=== PATIENT | female | born 1980 | race Caucasian/White ===

== ENCOUNTER 2017-12-05 06:35 | Emergency (ER) | payer SELFPAY ==
[2017-12-05] MEDS ORDERED: TETANUS & DIPHTHERIA TOX,ADULT 0.5 ML VIAL ONE (06:41)
[2017-12-05] MEDS ORDERED: NA CHLORIDE 0.9% 1,000 ML ONE ×2 (06:49→07:36)
[2017-12-05 07:02] LABS: Absolute Lymphocytes (CBC) 1.3 K/uL (0.7-4.9); Absolute Neutrophil 10.2 K/uL (1.8-8.0); Basophils % 0.4 % (0-1.3); Eosinophils % 0.1 % (0-4.4); Hematocrit 42.7 % (36.0-45.0); Lymphocytes % 10.5 % (15.3-44.8); MCH 29.7 pg (27.0-35.0); MCV 90.1 fL (80-100); MPV 9.9 fL (7.6-11.3); Monocytes % 7.6 % (3.3-12.3); RBC Red Blood Cell Count 4.74 M/uL (3.86-4.86)
[2017-12-05 07:10] LABS: Protime INR 0.92
[2017-12-05 07:13] LABS: Bicarbonate 28 mEq/L (21-31); Glucose Level 93 mg/dL (65-120); Potassium 4.1 mEq/L (3.6-5.0); Sodium Level 138 mEq/L (135-145)
[2017-12-05 07:14] LABS: Barbiturates NEGATIVE; Benzodiazepines POSITIVE; Cocaine NEGATIVE; METHAMPHETAM NEGATIVE; Opiates NEGATIVE; Phencyclidine NEGATIVE; THC Cannibis NEGATIVE
[2017-12-05 07:22] LABS: ALT/SGPT 18 IU/L (10-60); AST/SGOT 46 IU/L (10-42); Albumin 4.3 g/dL (3.2-5.5); Alkaline Phosphatase 62 IU/L (42-121); BUN Blood Urea Nitrogen 14 mg/dL (6-20); Bilirubin Direct 0.1 mg/dL (0-0.2); Bilirubin Total 0.3 mg/dL (0.3-1.2); CKMB Creatine Kinase MB 5.3 ng/ml (0.3-4.0); Glomerular Filtration Rate > 90 mL/min (=/>90)
[2017-12-05 07:23] LABS: Salicylates Level < 4.0 mg/dl (<30)
[2017-12-05 07:25] LABS: Alcohol Serum/Plasma < 10 mg/dl
[2017-12-05 07:34] LABS: Creatine Phosphokinase 3586 IU/L (22-269)
--- NOTE | 2017-12-05 08:15 | RAD REPORT ---
EXAM DESCRIPTION: CT - Head Brain Wo Cont - 12/05/2017 8:02 am CLINICAL HISTORY: Transient alteration of awareness. COMPARISON: None. TECHNIQUE: Axial 5 mm thick images of the head were obtained without IV contrast. All CT scans are performed using dose optimization technique as appropriate and may include automated exposure control or mA/KV adjustment according to patient size. FINDINGS: No intracranial hemorrhage, mass, edema or shift of mid-line structures. No acute infarcti on changes seen. No abnormal extra-axial fluid collections. Ventricles are normal. Mastoid air cells and visualized portions of the paranasal sinuses are clear. No acute bony findings. IMPRESSION: Negative non-contrast CT head examination.
--- NOTE | 2017-12-05 08:29 | RAD REPORT ---
EXAM DESCRIPTION: RAD - Foot Right 3 View - 12/05/2017 7:30 am CLINICAL HISTORY: Altered mental status, soft tissue injury right first toe COMPARISON: None. FINDINGS: A fracture is present along the medial base of the first distal phalanx. No measurable dis traction or angulation component. No lytic or destructive process. Fracture does involve the articula r surface of the distal phalanx. IP joint is otherwise unremarkable. No injury to the first proximal phalanx or first MTP joint. Elsewhere no acute bone finding. No air or foreign body in the soft tissues. IMPRESSION: Fracture is present at the base of the first distal phalanx. No significant distraction or angulation component.
--- NOTE | 2017-12-05 08:33 | ER ---
Nurse's Notes [facility] Name: Kayla Palacio Age: 37 yrs Sex: Female : 1980 Arrival Date: 12/05/2017 Time: 06:36 Bed 4 Private MD: Diagnosis: Altered mental status, unspecified;Rhabdomyolysis;Hypothermia;Nondisplaced fracture of distal phalanx of right great toe Presentation: 12/05 06:37 Presenting complaint: EMS states: they were toned out for report of pt with AMS bb according to PD pt had been wondering around outside approx 4 hours. Transition of care: patient was not received from another setting of care. Onset of symptoms is unknown. Care prior to arrival: None. 06:37 Method Of Arrival: EMS: [facility] bb 06:37 Acuity: RAHUL 2 bb EXTENSION SUPERVISOR: 06:38 unknown bb Historical: - Allergies: 06:38 Unable to obtain; bb - Home Meds: 06:38 Unable to obtain [Active]; bb - PMHx: 06:38 Unable to obtain; bb - PSHx: 06:38 Unable to obtain; bb - Immunization history:: Adult Immunizations unknown. - Social history:: Smoking status: unknown. Screenin:04 Fall Risk Fall in past 12 months (25 points). Secondary diagnosis (15 points) Altered ae1 mental status. . IV access (20 points). Ambulatory Aid- None/Bed Rest/Nurse Assist (0 pts). Gait- Normal/Bed Rest/Wheelchair (0 pts) Mental Status- Overestimates/Forgets Limitations (15 pts.). 09:43 Abuse screen: Patient is confused and states she remembers a woman telling her "we are ae1 going on a road trip" Patient states she does not remember the woman's name. Tuberculosis screening: Patient is confused and cannot answer some questions. . Patient has been NPO before screening. The patient is alert, able to follow commands. The patient exhibits slurred or garbled speech. The patient is exhibiting difficulty speaking. The patient does not exhibit difficulty understanding words. The patient is able to swallow own secretions with no drooling or need for suction. Patient tolerated one teaspoon of water. No drooling, immediate coughing, gurgling, or clearing of the throat was noted. Patient tolerated about 30 mls The patient passed the bedside swallow screening. Oral medications may be given as ordered. Contact Physician for further diet orders. 10:49 Nutritional screening: No deficits noted. ae1 Assessment: 06:50 Reassessment: Warm IV fluids infusing. lp1 07:06 General: Appears unkempt, Behavior is flat. Pain: Unable to use pain scale. Patient is lp1 disoriented. Neuro: Level of Consciousness is awake, stuporous, Oriented to none Manager Web are equal bilaterally Moves all extremities. Full function Pupils are pinpoint, Unable to answer questions appropriately . Cardiovascular: Pulses are all present. Respiratory: Airway is patent Respiratory effort is even, unlabored, Respiratory pattern is regular. GI: Abdomen is non-distended. : No deficits noted. EENT: No deficits noted. Derm: Skin has skin tears on Multiple abrasions to abdomen, bilateral knees, bilateral arms; bilateral elbows, abrasion to right cheek of face. Musculoskeletal: Circulation, motion, and sensation intact. Bruising noted to right great toe, purple in color. 07:29 Reassessment: Patient appears in no apparent distress at this time. General: Appears ae1 unkempt, Behavior is cooperative, quiet, Patient is mumbling incoherently.. Neuro: Level of Consciousness is awake, confused, Oriented to person, Patient will look at nurse when called by name. . 08:00 Reassessment: Patient transported to CT via stretcher with cheese grader and Perla Ramirez, rubia1 RN. 09:01 Neuro: Level of Consciousness is awake, alert, patient appears more alert, tugging at ae1 blankets, mumbling in incoherently. . 09:17 General: Behavior is anxious, restless. Neuro: Level of Consciousness is awake, alert, ae1 confused, Oriented to person. 09:54 General: Appears Behavior is anxious, restless, Patient is tugging at IV tubing and ae1 vital sign monitoring wires. . 10:09 Reassessment: Removed grass, twigs and burrs from hair. Assisted patient in washing ae1 face with warm wet washcloths. 10:22 Reassessment: Called [facility] to give report via telephone, spoke to Dariana, haroldo Charge Nurse, Dariana states she has not accepted the patient and did not know she was receiving a patient. Dariana asked for background on patient to determine if patient is suitable for her unit, nurse gave report ot Dariana. Dariana states to call back when acceptance is done for patient. 10:48 Reassessment: Report given to COLTEN Patel via telephone. Reassessment: Report given to [facility]. Vital Signs: 06:38 BP 135 / 97; Pulse 68; Resp 18 S; Pulse Ox 100% on R/A; Weight 68.04 kg (R); Height 5 bb ft. 4 in. (162.56 cm) (R); 06:44 Temp 93.1(R); bb 06:44 lp1 07:31 BP 124 / 89; Pulse 74; Resp 17; Temp 93.4(R); Pulse Ox 100% on R/A; ae1 08:45 BP 134 / 97; Pulse 78; Resp 19; Temp 94.6(C); Pulse Ox 98% on R/A; ae1 09:04 BP 110 / 74; Pulse 71; Resp 18; Temp 95.3(C); Pulse Ox 100% on R/A; ae1 09:19 Pulse 82; Temp 95.6(C); Pulse Ox 98% on R/A; ae1 09:28 Temp 95.9(C); ae1 10:05 BP 102 / 65; Temp 96.7(C); ae1 10:35 BP 109 / 78; Pulse 88; Resp 19 S; Temp 97(C); Pulse Ox 98% on R/A; ae1 06:38 Body Mass Index 25.75 (68.04 kg, 162.56 cm) bb 06:38 unable to determine bb 06:44 Laxmi hugger applied at this time lp1 ED Course: 06:30 Inserted saline lock: 20 gauge in right antecubital area, using aseptic technique. lp1 Blood collected. By COLTEN Loo. 06:36 Patient arrived in ED. kb 06:37 Deisy Anand FNP-C [facility]. kb 06:37 Camden Montaño MD is Attending Physician. kb 06:38 Triage completed. bb 06:38 Arm band placed on Patient placed in an exam room, on a stretcher, on library monitor, bb on pulse oximetry. 06:40 Straight cath inserted, using sterile technique, 16 Fr. Specimen obtained. lp1 06:52 Radiology exam delayed due to nurse to call when patient's body temp has increased. jg1 07:01 Watson Ramirez, COLTEN is Primary Nurse. ae1 07:05 Patient has correct armband on for positive identification. Placed in gown. Bed in low lp1 position. Side rails up X2. Pulse ox on. NIBP on. 07:25 X-ray completed. Portable x-ray completed in exam room. Patient tolerated procedure kp1 poorly. 07:26 Foot Right 3 View XRAY In Process Unspecified. EDMS 07:57 CT completed. Patient moved to CT via stretcher. Patient moved back from CT. cw1 08:02 CT Head Brain wo Cont In Process Unspecified. EDMS 08:14 Patient moved back from CT. ae1 08:32 Beth Neumann MD is Hospitalizing Provider. kb 08:58 De cath inserted, using sterile technique, 16 Fr., by ca, balloon inflated, urine ae1 specimen collected. returned giles urine. Patient tolerated well. 10:49 No provider procedures requiring assistance completed. Patient transferred, IV remains ae1 in place. Administered Medications: 06:59 Drug: NS 0.9% 1000 ml Route: IV; Rate: 1000 ml; Site: right antecubital; lp1 09:42 Follow up: IV Status: Completed infusion ae1 07:00 Drug: Tetanus-Diphtheria Toxoid Adult 0.5 ml {Auto Striper: [employer]. Exp: lp1 03/25/2020. Lot #: [id number]. } Route: IM; Site: right deltoid; 10:50 Follow up: Response: No adverse reaction ae1 08:44 Drug: NS 0.9% 1000 ml Route: IV; Rate: 1000 ml; Site: right antecubital; ae1 10:50 Follow up: IV Status: Completed infusion ae1 Point of Care Testing: Blood Glucose: 06:44 Blood Glucose: 90 mg/dL; bb Ranges: Output: 09:18 Urine: 650ml (De); Total: 650ml. ae1 Outcome: 08:33 Decision to Hospitalize by Provider. kb 10:17 ER care complete, transfer ordered by . kb 10:49 Transferred by ground EMS to [facility]. ae1 10:49 Condition: stable 10:49 Instructed on the need for transfer. 10:50 Patient left the ED. ae1 Signatures: Dispatcher [employer] EDMS Deisy Anand, HAND ALTERATIONS TAILOR-C HAND ALTERATIONS TAILOR-Ckb Sandra Darby jg1 Rosa Potts, RN RN Kimberly Freedman cw1 Pascale Fontaine, RN RN lp1 Watson Ramirez RN RN ae1 Anna Deluca kp1 Corrections: (The following items were deleted from the chart) 07:38 07:31 BP 137 / 111; Pulse 74bpm; Resp 17bpm; Pulse Ox 100% RA; Temp 93.4F Rectal; ae1 ae1 08:58 08:45 Pulse 78bpm; Resp 19bpm; Pulse Ox 98% RA; Temp 94.6F Catheter; ae1 ae1 10:26 10:22 Reassessment: Called [facility] to give report via telephone, spoke to ae1 Dariana, Charge Nurse, Dariana states she has not accepted the patient and did not know she was receiving a patient. Dariana asked for background on patient to determine if patient is suitable for her unit. Dariana states to call back when acceptance is done for patient. ae1
--- NOTE | 2017-12-05 08:33 | EDPHYS ---
Physician Documentation [facility] Name: Kayla Plaacio Age: 37 yrs Sex: Female : 1980 Arrival Date: 12/05/2017 Time: 06:36 Bed 4 Private MD: ED Physician Camden Motnaño HPI: 12/05 06:40 This 28 yrs old Female presents to ER via EMS with complaints of AMS. kb 06:40 The patient presents with decreased mental status. Onset: The symptoms/episode kb began/occurred at an unknown time. Possible causes: unknown. Associated signs and symptoms: Pertinent positives: confusion. Current symptoms: In the emergency department the patient's symptoms are unchanged from the initial presentation. Unable to obtain HPI due to altered mental status. The patient has not experienced similar symptoms in the past. The patient has not recently seen a physician. [facility] called approx 4 hours ago with report of female wondering around in bra and panties only. 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 Pt cold and shivering, will not respond to questions. Pt will follow commands, but will not speak. Pt lives with a friend that is unable to give information about pt, but reports he gave her money yesterday to come to the mall in . He last saw her at 1700 yesterday and she was normal.. CONSUMER MARKETING ANALYST: 06:38 unknown bb Historical: - Allergies: 06:38 Unable to obtain; bb - Home Meds: 06:38 Unable to obtain [Active]; bb - PMHx: 06:38 Unable to obtain; bb - PSHx: 06:38 Unable to obtain; bb - Immunization history:: Adult Immunizations unknown. - Social history:: Smoking status: unknown. ROS: 06:40 Eyes: Negative for injury, pain, redness, and discharge, ENT: Negative for injury, kb pain, and discharge, Neck: Negative for injury, pain, and swelling, Cardiovascular: Negative for chest pain, palpitations, and edema, Respiratory: Negative for shortness of breath, cough, wheezing, and pleuritic chest pain, Abdomen/GI: Negative for abdominal pain, nausea, vomiting, diarrhea, and constipation, MS/Extremity: Negative for injury and deformity. 06:40 Constitutional: Positive for chills. 06:40 Skin: Positive for abrasion(s), ecchymosis, diffusely. 06:40 Neuro: Positive for altered mental status. Exam: 06:51 Head/Face: Normocephalic, atraumatic. Eyes: Pupils equal round and reactive to light, kb extra-ocular motions intact. Lids and lashes normal. Conjunctiva and sclera are non-icteric and not injected. Cornea within normal limits. Periorbital areas with no swelling, redness, or edema. ENT: Nares patent. No nasal discharge, no septal abnormalities noted. Tympanic membranes are normal and external auditory canals are clear. Oropharynx with no redness, swelling, or masses, exudates, or evidence of obstruction, uvula midline. Mucous membranes moist. Neck: Trachea midline, no thyromegaly or masses palpated, and no cervical lymphadenopathy. Supple, full range of motion without nuchal rigidity, or vertebral point tenderness. No Meningismus. Chest/axilla: Normal chest wall appearance and motion. Nontender with no deformity. No lesions are appreciated. Cardiovascular: Regular rate and rhythm with a normal S1 and S2. No gallops, murmurs, or rubs. Normal PMI, no JVD. No pulse deficits. Respiratory: Lungs have equal breath sounds bilaterally, clear to auscultation and percussion. No rales, rhonchi or wheezes noted. No increased work of breathing, no retractions or nasal flaring. Abdomen/GI: Soft, non-tender, with normal bowel sounds. No distension or tympany. No guarding or rebound. No evidence of tenderness throughout. MS/ Extremity: Pulses equal, no cyanosis. Neurovascular intact. Full, normal range of motion. 06:51 Constitutional: The patient appears alert, awake, unkempt. 06:51 Skin: Appearance: ecchymosis, noted on the, , that are moderate, and are scattered, injury, abrasion(s), large abrasion noted, of the right knee and left knee. 06:51 Neuro: Orientation: Pt not oriented to person, place, time or situation upon arrival. Now oriented to person only, Mentation: able to follow commands, Memory: unable to test, Motor: moves all fours, strength is 5/5 in all extremities, Sensation: unable to test, Gait: unable to assess. Vital Signs: 06:38 BP 135 / 97; Pulse 68; Resp 18 S; Pulse Ox 100% on R/A; Weight 68.04 kg (R); Height 5 bb ft. 4 in. (162.56 cm) (R); 06:44 Temp 93.1(R); bb 06:44 lp1 07:31 BP 124 / 89; Pulse 74; Resp 17; Temp 93.4(R); Pulse Ox 100% on R/A; ae1 08:45 BP 134 / 97; Pulse 78; Resp 19; Temp 94.6(C); Pulse Ox 98% on R/A; ae1 09:04 BP 110 / 74; Pulse 71; Resp 18; Temp 95.3(C); Pulse Ox 100% on R/A; ae1 09:19 Pulse 82; Temp 95.6(C); Pulse Ox 98% on R/A; ae1 09:28 Temp 95.9(C); ae1 10:05 BP 102 / 65; Temp 96.7(C); ae1 10:35 BP 109 / 78; Pulse 88; Resp 19 S; Temp 97(C); Pulse Ox 98% on R/A; ae1 06:38 Body Mass Index 25.75 (68.04 kg, 162.56 cm) bb 06:38 unable to determine bb 06:44 Laxmi hugger applied at this time lp1 MDM: 06:37 Patient medically screened. kb 06:50 Data reviewed: vital signs, nurses notes. Data interpreted: Pulse oximetry: on room air kb is 100 %. Interpretation: normal. ED course: Pt is now able to give name and . . ED course: bear-hugger on pt and warmed NS being transfused.. 07:52 Counseling: I had a detailed discussion with the patient and/or guardian regarding: the kb historical points, exam findings, and any diagnostic results supporting the discharge/admit diagnosis, lab results, radiology results, the need for further work-up and treatment in the hospital. 08:10 ED course: Pt is awake, alert and oriented to person, place and month. . kb 08:29 Physician consultation: Beth Neumann MD was contacted at 08:29, regarding admission, kb to the ICU, patient's condition, and will see patient in ED, shortly. 08:30 ED course: Pt awake, alert and oriented to person, place and time. When asked about kb what happened last night, pt tries to explain, but is incoherent. . 09:05 Physician consultation: Beth Neumann MD in the emergency department to see patient at kb 09:05. 09:10 Physician consultation: Beth Neumann MD after a discussion of the case, a kb recommendation for transfer for higher level of care is made. ED course: Dr Neumann spoke with Dr Sarkar regarding pt's condition. Advised to transfer pt to facility that has neurology available. Pt needs MRI and EEG which are unavailable at this facility at this time. . 10:08 ED course: Pt accepted by [facility]ist for consult and hospitalist for kb admission. . 12/05 06:37 Order name: Acetaminophen; Complete Time: 07:35 kb 12/05 06:37 Order name: Basic Metabolic Panel; Complete Time: 07:35 kb 12/05 06:37 Order name: CBC with Diff; Complete Time: 07:15 kb 12/05 06:37 Order name: ETOH Level; Complete Time: 07:35 kb 12/05 06:37 Order name: Hepatic Function; Complete Time: 07:35 kb 12/05 06:37 Order name: PT-INR; Complete Time: 07:15 kb 12/05 06:37 Order name: Ptt, Activated; Complete Time: 07:15 kb 12/05 06:37 Order name: Salicylate; Complete Time: 07:35 kb 12/05 06:37 Order name: Urine Drug Screen; Complete Time: 09:43 kb 12/05 06:39 Order name: CPK kb 12/05 06:39 Order name: Ckmb kb 12/05 06:39 Order name: Troponin (emerg Dept Use Only) 12/05 06:40 Order name: Creatine Phosphokinase; Complete Time: 07:35 EDMS 12/05 06:40 Order name: CKMB Creatine Kinase MB; Complete Time: 07:35 EDMS 12/05 06:37 Order name: Urine Test (obtain specimen); Complete Time: 07:05 kb 12/05 06:37 Order name: EKG; Complete Time: 06:38 kb 12/05 06:37 Order name: EKG - Nurse/Tech; Complete Time: 07:29 kb 12/05 06:37 Order name: IV Saline Lock; Complete Time: 07:12 kb 12/05 06:37 Order name: Labs collected and sent; Complete Time: 07:12 kb 12/05 06:37 Order name: Urine Dipstick-Ancillary (obtain specimen); Complete Time: 07:05 kb 12/05 06:37 Order name: CT Head Brain wo Cont; Complete Time: 08:22 kb 12/05 06:37 Order name: Foot Right 3 View XRAY; Complete Time: 08:30 kb 12/05 06:40 Order name: Troponin (Emerg Dept Use Only); Complete Time: 07:21 EDMS 12/05 06:44 Order name: glucometer results - FOR PT WITH NO ID; Complete Time: 07:15 bb 12/05 07:20 Order name: Urine Dipstick--Ancillary (enter results); Complete Time: 08:42 ag 12/05 07:20 Order name: Urine --Ancillary (enter results); Complete Time: 08:42 ag Administered Medications: 06:59 Drug: NS 0.9% 1000 ml Route: IV; Rate: 1000 ml; Site: right antecubital; lp1 09:42 Follow up: IV Status: Completed infusion ae1 07:00 Drug: Tetanus-Diphtheria Toxoid Adult 0.5 ml {Sharepoint Designer Developer: [employer]. Exp: lp1 03/25/2020. Lot #: [id number]. } Route: IM; Site: right deltoid; 10:50 Follow up: Response: No adverse reaction ae1 08:44 Drug: NS 0.9% 1000 ml Route: IV; Rate: 1000 ml; Site: right antecubital; ae1 10:50 Follow up: IV Status: Completed infusion ae1 Point of Care Testing: Blood Glucose: 06:44 Blood Glucose: 90 mg/dL; bb Ranges: Critical Glucose Levels:Adult <50 mg/dl or >400 mg/dl <40 mg/dl or >180 mg/dl Disposition: 12/05/17 10:17 Transfer ordered to [facility]. Diagnosis are Altered mental status, unspecified, Rhabdomyolysis, Hypothermia, Nondisplaced fracture of distal phalanx of right great toe. - Reason for transfer: Higher level of care. - Accepting physician is Dr Lynch. - Condition is Fair. - Problem is new. - Symptoms have improved. Addendum: 12/12/2017 19:45 Co-signature as Attending Physician, Camden Montaño MD. m a2 Signatures: Dispatcher [employer] Deisy Gomez, KAYCEE CRUZ-Rosa Eagle RN RN bb Pascale Fontaine RN RN lp1 Watson Ramirez RN RN ae1 Camden Montaño MD MD ma2
[2017-12-05 08:41] LABS: Urine Blood NEGATIVE (NEG); Urine Glucose NEGATIVE (NEG); Urine Protein NEGATIVE (NEG); Urine Specific Gravity 1.015 (1.005-1.030)
--- NOTE | 2017-12-06 22:38 | EKG ---
Test Date: 2017-12-05 Test Time: 07:23:53 Business Account Specialist: DL MEASUREMENT RESULTS: Intervals: Rate: 77 SC: 170 QRSD: 80 QT: 442 QTc: 500 [place]: P: 68 SC: 170 QRS: 88 T: 67 INTERPRETIVE STATEMENTS: Normal sinus rhythm Prolonged QT Abnormal ECG No previous ECG available for comparison Electronically Signed On 12-06-17 22:37:44 CDT by Tray [place]
== END 2017-12-05 10:50 | disposition short-term general hospital (02) ==
LOC: EDBD 06:35 → MERGE 06:35 → ER 06:35 → ERHOLD 08:33 → UNDOADMIN 08:33 → ER 10:50
DX: M62.82 Rhabdomyolysis (principal); T68.XXXA Hypothermia, initial encounter; S92.424A Nondisplaced fracture of distal phalanx of right great toe, initial encounter for closed fracture; Z23 Encounter for immunization
CPT/HCPCS: 36415; 51702; 70450; 80048; 80076; 80307; 80320; 80329; 81003; 81025; 82550; 82553; 82962; 84484; 85025; 85610; 85730; 90714; 93005; 96360; 96361; 99285; J7030